=== PATIENT | male | born 1955 | race Caucasian/White ===

== ENCOUNTER 2023-10-19 22:44 | Inpatient (IN) | payer OTHER ==
[2023-10-19] MEDS ORDERED: morphine SULFATE 4 MG/ML VIAL ONE ×2 (23:49→23:54)
[2023-10-20] MEDS: morphine SULFATE 4 MG/ML VIAL IVPUSH ONE (00:08)
[2023-10-20] MEDS ORDERED: LABETALOL HCL 100 MG TABLET (FP) ONE (00:26)
[2023-10-20 00:43] LABS: BASO % 0.2 % (0-2.0); EOS % 1.2 % (0-4.5); HEMATOCRIT 35.1 % (35.4-49); HEMOGLOBIN 12.2 GM/dL (11.7-16.9); LYMPH % 12.1 % (8-40); MCHC 34.7 g/dl (32.0-35.9); MEAN CELL VOLUME 83.7 fl (80-96); MEAN PLT VOLUME 6.7 fl (7.5-11.1); MONO % 5.3 % (3.8-10.2); NEUT % 81.2 % (42.8-82.8); PLATELET COUNT 197 10^3/uL (134-434); RDW 16.9 % (11.9-15.9); WHITE BLOOD COUNT 7.2 K/mm3 (4.0-10.0)
[2023-10-20] MEDS: LABETALOL HCL 100 MG TABLET (FP) PO ONE (00:59)
[2023-10-20 01:02] LABS: POTASSIUM 3.7 mmol/L (3.5-5.1)
[2023-10-20 01:03] LABS: CALCIUM 8.6 mg/dL (8.5-10.1)
[2023-10-20 01:04] LABS: ALBUMIN 3.5 g/dl (3.4-5.0); BLOOD UREA NITROGEN 61.4 mg/dL (7-18); MAGNESIUM 1.9 mg/dL (1.8-2.4)
[2023-10-20 01:08] LABS: TOT PROT 7.9 g/dl (6.4-8.2)
[2023-10-20 04:45] LABS: EPI CELLS 1 /uL (0-25.1); HYALINE CASTS 1 /uL (0-3.1); PH,URINE 6.5 (5.0-8.0); URINE APPEARANCE CLOUDY; URINE BACTERIA >9,000 /uL (0-1359); URINE BILIRUBIN NEGATIVE (NEGATIVE); URINE COLOR YELLOW; URINE GLUCOSE (UA) NEGATIVE (NEGATIVE); URINE KETONE NEGATIVE (NEGATIVE); URINE LEUK ESTERASE 2+ (NEGATIVE); URINE NITRITE POSITIVE (NEGATIVE); URINE PROTEIN 3+ (NEGATIVE); URINE RBC 95 /uL (0-23.9); URINE UROBILINOGEN 0.2 mg/dL (0.2-1.0); URINE WBC 531 /uL (0-25.8)
[2023-10-20] MEDS ORDERED: morphine SULFATE 4 MG/ML VIAL ONE (06:38)
[2023-10-20] MEDS: morphine CARPU-JECT 4 MG/1 ML DISP.SYRIN IVPUSH ONE (06:53)
[2023-10-20] MEDS: PIPERACILLIN/TAZOB 3.375 GM 3.375 GM in DEXTROSE 5%-WATER - 50 ML IVPB ONE (08:50)
[2023-10-20] MEDS ORDERED: PIPERACILLIN/TAZOB 3.375 GM 3.375 GM/50 ML BAG IVPB ONE (08:51)
[2023-10-20] MEDS: CEFTRIAXONE 1,000 MG in DEXTROSE 5%-WATER - 50 ML IVPB ONE (08:56)
[2023-10-20] MEDS: SODIUM CHLORIDE 0.9% 500 ML INFUS.BAG IV ONE (09:24)
[2023-10-20] MEDS: LACTATED RINGERS SOLUTION 1,000 ML IV SCH (10:33)
[2023-10-20] MEDS ORDERED: amLODIPine BESYLATE 10 MG TABLET (FP) ONE (10:48)
[2023-10-20] MEDS: amLODIPine BESYLATE 10 MG TABLET (FP) PO SCH (10:50)
[2023-10-20 12:28] VITALS: BMI 17.6
[2023-10-20] MEDS ORDERED: BISACODYL 5 MG TABLET.DR (FP) PO PRN (12:59)
[2023-10-20] MEDS: POLYETHYLENE GLYCOL (HEALTHYLAX) 3350 17 GM PACKET PO SCH (13:13)
[2023-10-20] MEDS: HEPARIN NA (PORCINE) 5,000 UNITS/ML 1ML VIAL SQ SCH (13:13)
[2023-10-20] MEDS ORDERED: ALBUTEROL SO4 HFA INHALER IH PRN (13:22)
[2023-10-20] MEDS: oxyCODONE HCL 5 MG TABLET PO PRN (15:11)
[2023-10-20] MEDS: ATORVASTATIN CA 80 MG TABLET (FP) PO SCH (21:17)
[2023-10-21 09:06] LABS: BASO % 0.6 % (0-2.0); HEMATOCRIT 30.1 % (35.4-49); HEMOGLOBIN 10.3 GM/dL (11.7-16.9); LYMPH % 19.2 % (8-40); MCH 28.5 pg (25.7-33.7); MCHC 34.3 g/dl (32.0-35.9); MEAN CELL VOLUME 83.1 fl (80-96); MEAN PLT VOLUME 6.4 fl (7.5-11.1); NEUT % 68.2 % (42.8-82.8); PLATELET COUNT 154 10^3/uL (134-434); RBC 3.63 M/mm3 (4.00-5.60); RDW 16.1 % (11.9-15.9); WHITE BLOOD COUNT 5.7 K/mm3 (4.0-10.0)
[2023-10-21 09:10] LABS: INR 1.02 (0.83-1.09); PROTHROMBIN TIME (PATIENT) 11.8 SEC (9.7-13.0)
[2023-10-21 09:11] LABS: ACTIVATED PTT 32.9 SECONDS (25.2-36.5)
[2023-10-21 09:14] LABS: POTASSIUM 3.2 mmol/L (3.5-5.1)
[2023-10-21 09:19] LABS: MAGNESIUM 1.5 mg/dL (1.8-2.4)
[2023-10-21 09:20] LABS: BLOOD UREA NITROGEN 52.9 mg/dL (7-18)
[2023-10-21 09:22] LABS: CREATININE 3.3 mg/dL (0.55-1.3)
[2023-10-21 09:24] LABS: PHOSPHOROUS 4.4 mg/dL (2.5-4.9); TOT PROT 6.7 g/dl (6.4-8.2)
[2023-10-21] MEDS: HEPARIN NA (PORCINE) 5,000 UNITS/ML 1ML VIAL SQ SCH (09:47)
[2023-10-21] MEDS: ASPIRIN 81 MG CHEWABLE TABLETS PO SCH (09:48)
[2023-10-21] MEDS: POLYETHYLENE GLYCOL (HEALTHYLAX) 3350 17 GM PACKET PO SCH (13:15)
[2023-10-21] MEDS: KCL 10 MEQ IVPB 10 MEQ/100 ML INFUS.BAG IVPB SCH (16:30)
[2023-10-21] MEDS: SERTRALINE HCL 25 MG TABLET (FP) PO SCH (16:30)
[2023-10-21] MEDS: ACETAMINOPHEN 1000 MG/100 ML BAG IVPB PRN (16:31)
[2023-10-21] MEDS: COLLAGENASE CLOSTRIDIUM HIST. 30 GRAMS TUBE TP SCH (17:41)
[2023-10-21] MEDS ORDERED: PIPERACILLIN/TAZOB 2.25 GM 2.25 GM in DEXTROSE 5%-WATER - 50 ML IVPB SCH (18:00)
[2023-10-21] MEDS: BACITRACIN ZINC 15 GM TUBE TOPICAL OINTMENT TP SCH (21:25)
[2023-10-21] MEDS: LABETALOL HCL 100 MG TABLET (FP) PO SCH (21:26)
[2023-10-22] MEDS: PANTOPRAZOLE 20 MG TABLET PO SCH (09:25)
[2023-10-22 10:23] LABS: POTASSIUM 3.8 mmol/L (3.5-5.1)
[2023-10-22 10:31] LABS: CALCIUM 7.9 mg/dL (8.5-10.1)
[2023-10-22 10:32] LABS: ALBUMIN 2.7 g/dl (3.4-5.0)
[2023-10-22 10:37] LABS: BILIRUBIN,TOTAL 0.9 mg/dL (0.2-1); TOT PROT 6.3 g/dl (6.4-8.2)
[2023-10-22 10:39] LABS: BLOOD UREA NITROGEN 49.9 mg/dL (7-18)
[2023-10-22] MEDS ORDERED: MEROPENEM 1 GM in DEXTROSE 5%-WATER 100 ML IVPB SCH (15:15)
[2023-10-22] MEDS: MAGNESIUM OXIDE 400 MG TABLET (FP) PO ONE (15:17)
[2023-10-23] MEDS: amLODIPine BESYLATE 10 MG TABLET (FP) PO ONE (05:56)
[2023-10-23 08:59] VITALS: TEMP 98.5
[2023-10-23 10:20] LABS: HEMATOCRIT 27.8 % (35.4-49); HEMOGLOBIN 9.7 GM/dL (11.7-16.9); MCH 28.8 pg (25.7-33.7); MCHC 34.8 g/dl (32.0-35.9); MEAN CELL VOLUME 82.6 fl (80-96); MEAN PLT VOLUME 6.6 fl (7.5-11.1); PLATELET COUNT 130 10^3/uL (134-434); RBC 3.36 M/mm3 (4.00-5.60); RDW 16.2 % (11.9-15.9); WHITE BLOOD COUNT 6.6 K/mm3 (4.0-10.0)
[2023-10-23 10:44] LABS: POTASSIUM 3.8 mmol/L (3.5-5.1)
[2023-10-23 10:49] LABS: ALBUMIN 2.9 g/dl (3.4-5.0); CALCIUM 8.1 mg/dL (8.5-10.1)
[2023-10-23 10:50] LABS: MAGNESIUM 1.7 mg/dL (1.8-2.4)
[2023-10-23 10:53] LABS: CREATININE 2.7 mg/dL (0.55-1.3)
[2023-10-23 10:54] LABS: TOT PROT 6.5 g/dl (6.4-8.2)
[2023-10-23] MEDS: MULTIVITAMINS THER W-MINERALS COMBO TABLET (FP) PO SCH (11:40)
[2023-10-23] MEDS: ASCORBIC ACID 500 MG TABLET (FP) PO SCH (11:40)
[2023-10-23] MEDS: SODIUM CHLORIDE 0.45% 1,000 ML IV SCH (13:07)
[2023-10-23] MEDS: MAGNESIUM OXIDE 400 MG TABLET (FP) PO ONE (13:08)
[2023-10-23 14:04] VITALS: BP 174/87; PULSE 66; RESP 18
[2023-10-24] MEDS ORDERED: amLODIPine BESYLATE 10 MG TABLET (FP) PO SCH (10:00)
== END 2023-10-23 14:14 | DRG 438 ==
LOC: JER 22:44 → JERBED 10-20 04:18 → J6S 10-20 11:18 → J5S 10-22 12:14
PROVIDERS: ADMIT Internal Medicine; ATTEND Internal Medicine
DX: K85.90 Acute pancreatitis without necrosis or infection, unspecified (principal); L89.153 Pressure ulcer of sacral region, stage 3; G82.20 Paraplegia, unspecified; I12.9 Hypertensive chronic kidney disease with stage 1 through stage 4 chronic kidney disease, or unspecified chronic kidney disease; N18.9 Chronic kidney disease, unspecified; F31.9 Bipolar disorder, unspecified; N31.9 Neuromuscular dysfunction of bladder, unspecified; K59.00 Constipation, unspecified; E87.6 Hypokalemia
CPT/HCPCS: 0241U-QW; 36415; 71045-TC-FY; 74018-TC-FY; 74176-TC; 74181-TC; 76705-TC; 80053; 81003; 82150; 82728; 82962; 82977; 83540; 83550; 83605; 83690; 83735; 84100; 85025; 85027; 85610; 85730; 86140; 86850; 86900; 86901; 87086; 87186; 99285-25; J0131; J1644

== ENCOUNTER 2023-12-16 12:52 | Observation (INO) | payer OTHER ==
[2023-12-16 13:57] LABS: BASO % 0.5 % (0-2.0); EOS % 1.2 % (0-4.5); HEMATOCRIT 14.5 % (35.4-49); LYMPH % 12.5 % (8-40); MCH 28.3 pg (25.7-33.7); MCHC 33.9 g/dl (32.0-35.9); MEAN CELL VOLUME 83.6 fl (80-96); MEAN PLT VOLUME 6.4 fl (7.5-11.1); MONO % 4.5 % (3.8-10.2); NEUT % 81.3 % (42.8-82.8); PLATELET COUNT 395 10^3/uL (134-434); RBC 1.73 M/mm3 (4.00-5.60); RDW 16.5 % (11.9-15.9); WHITE BLOOD COUNT 7.7 K/mm3 (4.0-10.0)
[2023-12-16 14:00] LABS: HEMOGLOBIN 4.9 GM/dL (11.7-16.9)
[2023-12-16 14:05] LABS: INR 1.15 (0.83-1.09); PROTHROMBIN TIME (PATIENT) 13.3 SEC (9.7-13.0)
[2023-12-16 14:08] LABS: ACTIVATED PTT 37.3 SECONDS (25.2-36.5)
[2023-12-16 14:16] LABS: POTASSIUM 3.6 mmol/L (3.5-5.1)
[2023-12-16 14:18] LABS: CALCIUM 8.1 mg/dL (8.5-10.1)
[2023-12-16 14:19] LABS: ALBUMIN 2.8 g/dl (3.4-5.0)
[2023-12-16 14:22] LABS: CREATININE 3.4 mg/dL (0.55-1.3)
[2023-12-16 14:23] LABS: TOT PROT 6.8 g/dl (6.4-8.2)
[2023-12-16 14:25] LABS: BILIRUBIN,TOTAL 0.5 mg/dL (0.2-1)
[2023-12-16] MEDS ORDERED: ACETAMINOPHEN INJECTION 100 ML IVPB ONE (14:48)
[2023-12-16] MEDS: ACETAMINOPHEN 1000 MG/100 ML BAG IVPB ONE ×2 (14:51→21:45)
[2023-12-16 19:39] LABS: EPI CELLS 1 /uL (0-25.1); HYALINE CASTS 0 /uL (0-3.1); URINE APPEARANCE CLEAR; URINE BACTERIA 2850 /uL (0-1359); URINE BILIRUBIN NEGATIVE (NEGATIVE); URINE COLOR YELLOW; URINE GLUCOSE (UA) NEGATIVE (NEGATIVE); URINE KETONE NEGATIVE (NEGATIVE); URINE LEUK ESTERASE 2+ (NEGATIVE); URINE NITRITE POSITIVE (NEGATIVE); URINE PROTEIN 2+ (NEGATIVE); URINE UROBILINOGEN 0.2 mg/dL (0.2-1.0); URINE WBC 280 /uL (0-25.8)
[2023-12-16] MEDS ORDERED: SERTRALINE HCL 50 MG TABLET (FP) ONE (19:58)
[2023-12-16] MEDS: SERTRALINE HCL 25 MG TABLET (FP) PO SCH (20:01)
[2023-12-16] MEDS: ATORVASTATIN CA 80 MG TABLET (FP) PO SCH (21:47)
[2023-12-16] MEDS: LABETALOL HCL 100 MG TABLET (FP) PO SCH (21:47)
[2023-12-16] MEDS: POLYETHYLENE GLYCOL (HEALTHYLAX) 3350 17 GM PACKET PO SCH (21:47)
[2023-12-16] MEDS: oxyCODONE HCL 5 MG TABLET PO ONE (23:45)
[2023-12-17 08:06] LABS: BASO % 0.3 % (0-2.0); EOS % 1.9 % (0-4.5); HEMATOCRIT 21.8 % (35.4-49); HEMOGLOBIN 7.6 GM/dL (11.7-16.9); LYMPH % 11.6 % (8-40); MCH 29.2 pg (25.7-33.7); MCHC 34.7 g/dl (32.0-35.9); MEAN PLT VOLUME 6.5 fl (7.5-11.1); MONO % 5.6 % (3.8-10.2); NEUT % 80.6 % (42.8-82.8); PLATELET COUNT 347 10^3/uL (134-434); RBC 2.59 M/mm3 (4.00-5.60); RDW 14.6 % (11.9-15.9); WHITE BLOOD COUNT 8.8 K/mm3 (4.0-10.0)
[2023-12-17 08:28] LABS: POTASSIUM 3.5 mmol/L (3.5-5.1)
[2023-12-17 08:32] LABS: ALBUMIN 2.6 g/dl (3.4-5.0); CALCIUM 7.9 mg/dL (8.5-10.1)
[2023-12-17 08:35] LABS: CREATININE 3.4 mg/dL (0.55-1.3)
[2023-12-17 08:37] LABS: BILIRUBIN,TOTAL 0.9 mg/dL (0.2-1); TOT PROT 6.3 g/dl (6.4-8.2)
[2023-12-17] MEDS: ASPIRIN 81 MG CHEWABLE TABLETS PO SCH (09:32)
[2023-12-17] MEDS: PANTOPRAZOLE 20 MG TABLET PO SCH (09:32)
[2023-12-17] MEDS: oxyCODONE HCL 5 MG TABLET PO PRN (11:01)
[2023-12-17 11:57] VITALS: RESP 20
[2023-12-17 16:50] VITALS: BMI 15.0
[2023-12-17] MEDS: SODIUM CHLORIDE 0.45% 1,000 ML IV SCH (17:10)
[2023-12-17] MEDS ORDERED: ACETAMINOPHEN 325 MG TABLET (FP) PO PRN (18:42)
[2023-12-17] MEDS: amLODIPine BESYLATE 10 MG TABLET (FP) PO SCH (20:01)
[2023-12-17 21:32] LABS: BASO % 0.4 % (0-2.0); EOS % 2.1 % (0-4.5); HEMATOCRIT 25.4 % (35.4-49); HEMOGLOBIN 8.7 GM/dL (11.7-16.9); LYMPH % 10.8 % (8-40); MCH 28.8 pg (25.7-33.7); MCHC 34.3 g/dl (32.0-35.9); MEAN CELL VOLUME 83.9 fl (80-96); MEAN PLT VOLUME 6.2 fl (7.5-11.1); MONO % 5.1 % (3.8-10.2); NEUT % 81.6 % (42.8-82.8); PLATELET COUNT 330 10^3/uL (134-434); RBC 3.03 M/mm3 (4.00-5.60); RDW 14.9 % (11.9-15.9); WHITE BLOOD COUNT 9.8 K/mm3 (4.0-10.0)
[2023-12-17] MEDS: GABAPENTIN 100 MG CAPSULE PO SCH (22:02)
[2023-12-17] MEDS: ACETAMINOPHEN 325 MG TABLET (FP) PO PRN (22:04)
[2023-12-18 09:04] LABS: BASO % 0.2 % (0-2.0); EOS % 2.5 % (0-4.5); HEMATOCRIT 27.3 % (35.4-49); HEMOGLOBIN 9.5 GM/dL (11.7-16.9); LYMPH % 10.3 % (8-40); MCH 29.2 pg (25.7-33.7); MCHC 34.8 g/dl (32.0-35.9); MEAN CELL VOLUME 84.1 fl (80-96); MEAN PLT VOLUME 6.3 fl (7.5-11.1); MONO % 5.6 % (3.8-10.2); NEUT % 81.4 % (42.8-82.8); PLATELET COUNT 311 10^3/uL (134-434); RBC 3.25 M/mm3 (4.00-5.60); RDW 14.9 % (11.9-15.9)
[2023-12-18 09:25] LABS: POTASSIUM 3.1 mmol/L (3.5-5.1)
[2023-12-18 09:28] LABS: CALCIUM 8.2 mg/dL (8.5-10.1)
[2023-12-18 09:30] LABS: ALBUMIN 2.7 g/dl (3.4-5.0)
[2023-12-18 09:32] LABS: BLOOD UREA NITROGEN 49.9 mg/dL (7-18); CREATININE 3.1 mg/dL (0.55-1.3)
[2023-12-18 09:33] LABS: BILIRUBIN,TOTAL 1.2 mg/dL (0.2-1)
[2023-12-18 09:34] LABS: TOT PROT 6.6 g/dl (6.4-8.2)
[2023-12-18 11:40] VITALS: BP 184/88; PULSE 66; TEMP 98.3
[2023-12-18] MEDS ORDERED: POTASSIUM CHLORIDE ORAL LIQUID 20 MEQ/15 ML PO ONE (12:51)
== END 2023-12-18 11:50 ==
LOC: JER 12:52 → JERBED 16:25 → J8W 20:42
PROVIDERS: ADMIT Internal Medicine; ATTEND Internal Medicine
PROC: 3E0337Z Introduction of Electrolytic and Water Balance Substance into Peripheral Vein, Percutaneous Approach (ICD-10-PCS; principal; 2023-12-16)
PROC: 3E033NZ Introduction of Analgesics, Hypnotics, Sedatives into Peripheral Vein, Percutaneous Approach (ICD-10-PCS; 2023-12-16)
PROC: 30233N1 Transfusion of Nonautologous Red Blood Cells into Peripheral Vein, Percutaneous Approach (ICD-10-PCS; 2023-12-16)
DX: D64.9 Anemia, unspecified (principal); K86.89 Other specified diseases of pancreas; G82.20 Paraplegia, unspecified; Z87.19 Personal history of other diseases of the digestive system; K56.41 Fecal impaction; K86.2 Cyst of pancreas
CPT/HCPCS: 36415; 36430; 71045-TC-FY; 74176-TC; 76882-TC-RT-FY; 80053; 81003; 82272; 82728; 83540; 83550; 84484; 85025; 85610; 85730; 86850; 86900; 86901; 86922; 87086; 87186; 87635; 93005; 93010; 96361; 96374; 96376; 99285-25; G0378; J0131; P9038; P9058